=== PATIENT | female | born 1950 | race Hispanic/Latino ===

== ENCOUNTER 2018-12-15 20:31 | Emergency (ER) | payer MEDICARE ==
--- OUTSIDE RECORDS SUMMARY | 2018-12-15 20:33 | XMS REPORT | Continuity of Care Document ---
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 7 DIABETES MELLITUS WITH Medications No Data Provided for This Section Allergies, Adverse Reactions, Alerts No Known Medication Allergies Immunizations No Data Provided for This Section Results No Data Provided for This Section Pathology Reports No Data Provided for This Section Diagnostic Reports Report Value Date Source Gallbladder scan JESSICA burger Patient Name: JASIEL TINSLEY 09/27/2016 [facility] : 1950; Age: 66 years Female MR: [id number] Study: Gallbladder scan JESSICA burger [facility] 09/27/2016 11:15 AM CDT Clinical Indication: R10.84 Generalized abdominal pain.Mid abdominal pain for 6 months, nausea, vomiting, diarrhea. COMPARISON: None TECHNIQUE: Hepatobiliary scan is performed using 6.1 mCi of Tc-99m Choletec, which was administered intravenously. 45 minutes of static imaging was performed at 5 minute intervals in the frontal plane - starting 5 minutes after radiotracer administration. 1 ug of CCK was used for the exam, which was administered intravenously. 30 minutes of further static imaging was performed at 5 minute intervals after CCK a dministration in the frontal plane for gallbladder ejection fraction calculation. INJECTION SITE: Right antecubital. FINDINGS: Prompt hepatic uptake and excretion. There is progression of the radiotracer through a non dilated biliary tree and into small bowel. Gallbladder filling is first noted at 30 minutes past radiotracer injection. After Cholecystokinin infusion the gallbladder ejection fraction is noted to be 61%. (GB ejection fraction - normal greater than 50%, indeterminate 35-50%, abnormal <35%) Technologist Comment: Mild cramping/pressure during CCK infusion. IMPRESSION: Normal hepatobiliary scan and gallbladder ejection fraction. SL: [id number] Consultation Notes No Data Provided for This Section Discharge Summaries No Data Provided for This Section History and Physicals No Data Provided for This Section Vital Signs No Data Provided for This Section Encounters Location Location Encounter Encounter Reason Attending ADM DC Status Source Details Type Number For Provider Date Date Visit [facility] [place] [facility] [id number] Ty 09/27 09/28 [facility] Procedures No Data Provided for This Section Assessment and Plan No Data Provided for This Section Plan of Care No Data Provided for This Section Social History Social History Date Source No data available for this 09/28/[address] [facility] section Family History No Data Provided for This Section Advance Directives No Data Provided for This Section Functional Status No Data Provided for This Section
[2018-12-15] MEDS ORDERED: LEVALBUTEROL 1.25 MG/3 ML NEB ONE (21:25)
[2018-12-15] MEDS ORDERED: CEFTRIAXONE/SWI 1gm 1 GM/10 ML SYR ONE (21:25)
[2018-12-15] MEDS ORDERED: NA CHLORIDE 0.9% 250 ML ONE (21:25)
[2018-12-15] MEDS ORDERED: METHYLPREDNISOLONE 125 MG INJ ONE (21:25)
[2018-12-15] MEDS ORDERED: IPRATROPIUM BROM 0.5MG/2.5ML ONE (21:25)
[2018-12-15] MEDS ORDERED: NA CHLORIDE 0.9% 1,000 ML ONE (21:25)
[2018-12-15] MEDS ORDERED: AZITHROMYCIN 500 MG INJ IVPB ONE (21:25)
[2018-12-15 22:07] LABS: Absolute Lymphocytes (CBC) 2.7 K/uL (0.7-4.9); Basophils % 0.8 % (0-1.3); Hematocrit 42.7 % (36.0-45.0); Lymphocytes % 29.3 % (15.3-44.8); MPV 9.2 fL (7.6-11.3); RBC Red Blood Cell Count 4.86 M/uL (3.86-4.86)
[2018-12-15 22:10] LABS: Protime INR 0.95
--- NOTE | 2018-12-15 22:14 | ER ---
Nurse's Notes [facility] Name: Vandana Bliss Age: 68 yrs Sex: Female : 1950 Arrival Date: 12/15/2018 Time: 20:32 Bed 18 Private MD: Diagnosis: Tobacco abuse counseling;Tobacco use;Cough;Chronic obstructive pulmonary disease, unspecified;Type 1 diabetes mellitus Presentation: 12/15 20:49 Presenting complaint: Patient states: "I was told I have pneumonia about a month ago. I jd3 got better, but then in the last 3-4 days I have gotten worse again. I have a persistent cough and pressure in my back and my chest.". Transition of care: patient was not received from another setting of care. Onset of symptoms was December 12, 2018. Risk Assessment: Do you want to hurt yourself or someone else? Patient reports no desire to harm self or others. Initial Sepsis Screen: Does the patient meet any 2 criteria? RR > 20 per min. No. Patient's initial sepsis screen is negative. Does the patient have a suspected source of infection? No. Patient's initial sepsis screen is negative. Care prior to arrival: None. 20:49 Method Of Arrival: Wheelchair jd3 20:49 Acuity: CAROLYN 3 jd3 Historical: - Allergies: 20:53 No Known Allergies; jd3 - Home Meds: 20:53 diabetes med [Active]; cholesterol med [Active]; blood pressure med [Active]; thyroid jd3 med [Active]; - PMHx: 20:53 Diabetes - IDDM; High Cholesterol; Hypertension; Hypothyroidism; jd3 - PSHx: 20:53 back; jd3 - Immunization history:: Adult Immunizations up to date. - Social history:: Smoking status: Patient uses tobacco products, smokes one-half pack cigarettes per day. - Ebola Screening: : Patient negative for fever greater than or equal to 101.5 degrees Fahrenheit, and additional compatible Ebola Virus Disease symptoms. Screenin:00 Abuse screen: Denies threats or abuse. Denies injuries from another. Nutritional rr5 screening: No deficits noted. Tuberculosis screening: No symptoms or risk factors identified. Fall Risk IV access (20 points). Total Lea Fall Scale indicates No Risk (0-24 pts). Assessment: 20:50 General: Appears in no apparent distress. uncomfortable, Behavior is calm, cooperative, rr5 appropriate for age. Pain: Complains of pain in chest Pain radiates to back Pain Quality of pain is described as pressure, Pain began gradually, Is intermittent. Neuro: Level of Consciousness is awake, alert, obeys commands, Oriented to person, place, time, situation, Appropriate for age. Cardiovascular: Capillary refill < 3 seconds Patient's skin is warm and dry. Respiratory: Reports cough that is persistent Airway is patent Respiratory effort is even, unlabored, Respiratory pattern is regular, symmetrical. GI: No signs and/or symptoms were reported involving the gastrointestinal system. 20:50 : No signs and/or symptoms were reported regarding the genitourinary system. EENT: No rr5 signs and/or symptoms were reported regarding the EENT system. Derm: Skin is intact, Skin is pink, warm \\T\\ dry. Skin temperature is warm. Musculoskeletal: Circulation, motion, and sensation intact. Capillary refill < 3 seconds. 21:50 Reassessment: Patient appears in no apparent distress at this time. Patient is alert, rr5 oriented x 3, equal unlabored respirations, skin warm/dry/pink. feels relieved after the breathing treatment as verbalized by the patient. 22:20 Reassessment: Patient appears in no apparent distress at this time. awaiting for CT rr5 procedure and laboratory. 23:39 Reassessment: Patient appears in no apparent distress at this time. Patient is alert, rr5 oriented x 3, equal unlabored respirations, skin warm/dry/pink. back from CT PE angio. 12/16 00:10 Reassessment: Patient appears in no apparent distress at this time. Patient is alert, rr5 oriented x 3, equal unlabored respirations, skin warm/dry/pink. awaiting for CT PE angio result before discharge.no complaints made. Patient states feeling better. Patient states symptoms have improved. 00:41 Reassessment: Patient appears in no apparent distress at this time. Patient is alert, rr5 oriented x 3, equal unlabored respirations, skin warm/dry/pink. discharge instruction given and explained without complaints made. Patient states feeling better. Patient states symptoms have improved. Vital Signs: 12/15 20:51 BP 165 / 75; Pulse 90; Resp 23 S; Temp 99.3(O); Pulse Ox 97% on R/A; Weight 58.97 kg jd3 (R); Height 5 ft. 0 in. (152.40 cm) (R); Pain 0/10; 22:00 BP 141 / 70; Pulse 92; Resp 22; Pulse Ox 98% on R/A; rr5 23:00 BP 134 / 60; Pulse 75; Resp 18; Pulse Ox 100% ; rr5 08 00:00 BP 121 / 62; Pulse 82; Resp 17; Temp 99; Pulse Ox 98% ; rr5 00:30 BP 123 / 75; Pulse 88; Resp 20; Temp 99; Pulse Ox 99% on R/A; rr5 12/15 20:51 Body Mass Index 25.39 (58.97 kg, 152.40 cm) jd3 ED Course: 12/15 20:32 Patient arrived in ED. ds1 20:50 Patient has correct armband on for positive identification. Placed in gown. Bed in low rr5 position. Call light in reach. Side rails up X2. telemetry monitor on. Pulse ox on. NIBP on. 20:50 No provider procedures requiring assistance completed. IV discontinued, intact, rr5 bleeding controlled, No redness/swelling at site. Pressure dressing applied. Patient maintains SpO2 saturation greater than 95% on room air. 20:51 Triage completed. jd3 20:53 Arm band placed on. jd3 21:00 Markell Gallardo MD is Attending Physician. [place]ol[place] 21:17 Faizan Reddy, RN is Primary Nurse. rr5 21:20 Radiology exam delayed due to lab results not completed at this time. (BUN/Creatinine) vm2 IV insertion attempt and/or patient not having appropriate IV at this time. 21:37 XRAY Chest (1 view) In Process Unspecified. EDMS 21:52 Inserted saline lock: 20 gauge in right antecubital area, using aseptic technique. mw2 Blood collected. 21:58 Radiology exam delayed due to lab results not completed at this time. (BUN/Creatinine). nj 23:02 Amadeo Cash MD is Referral Physician. apolonia 23:31 CT completed. Patient tolerated procedure well. Patient moved to CT via stretcher. wa Patient moved back from CT. 23:42 CT Chest For PE Angio In Process Unspecified. EDMS Administered Medications: 20:10 Drug: Rocephin - (cefTRIAXone) 1 grams Route: IVPB; Infused Over: 30 mins; Site: right rr5 antecubital; 12/16 00:51 Follow up: Response: No adverse reaction; IV Status: Completed infusion; administered rr5 2210H, follow up 2310H 12/15 20:11 Drug: NS 0.9% 500 ml Route: IV; Rate: bolus; Site: right antecubital; rr5 21:00 Follow up: Response: No adverse reaction; IV Status: Completed infusion; IV Intake: rr5 500ml 22:00 Follow up: Response: No adverse reaction rr5 21:35 Drug: Xopenex 3.75 mg Route: Inhalation; rr5 22:35 Follow up: Response: No adverse reaction rr5 21:35 Drug: AtroVENT Aerosol 0.5 mg Route: Inhalation; rr5 22:35 Follow up: Response: No adverse reaction; Marked relief of symptoms rr5 22:00 Drug: SOLU-Medrol 125 mg Route: IVP; Site: right forearm; rr5 23:00 Follow up: Response: No adverse reaction rr5 22:20 Drug: NS 0.9% 1000 ml Route: IV; Rate: 125 ml/hr; Site: right forearm; rr5 12/16 00:30 Follow up: Response: No adverse reaction; IV Status: Order to discontinue infusion; IV rr5 Intake: 250ml 12/15 22:22 Drug: Zithromax 500 mg Route: IVPB; Infused Over: 1 hrs; Site: right antecubital; rr5 23:20 Follow up: Response: No adverse reaction; IV Status: Completed infusion; IV Intake: rr5 250ml 22:32 Drug: predniSONE 40 mg Route: PO; rr5 23:30 Follow up: Response: No adverse reaction rr5 23:29 Not Given (Other Intervention Used; not available): Levemir 100 unit/mL 30 units Sub-Q rr5 once 23:30 Drug: Insulin Regular Human 8 units {Co-Signature: jb4 (Abrahan Chen RN).} {Note: IV.} rr5 Route: IVP; Site: Other; 12/16 00:30 Follow up: Response: No adverse reaction rr5 12/15 23:54 Drug: LanTUS 30 units Route: Sub-Q; Site: right lower abdomen; rr5 12/16 00:35 Follow up: Response: No adverse reaction rr5 Intake: 12/15 21:00 IV: 500ml; Total: 500ml. rr5 23:20 IV: 250ml; Total: 750ml. rr5 12/16 00:30 IV: 250ml; Total: 1000ml. rr5 Outcome: 12/15 22:13 Discharge ordered by . apol[place] 12/16 00:30 Discharged to home ambulatory, with family. rr5 Condition: stable Discharge instructions given to patient, Instructed on discharge instructions, follow up and referral plans. medication usage, Demonstrated understanding of instructions, follow-up care, medications, Prescriptions given X 4. 00:54 Patient left the ED. rr5 Signatures: Dispatcher [employer] EDMS Makrell Gallardo MD MD cha Sanford, Demi ds1 Justin Nice Victoria 2 Vimal Kendrick, LALO RN jd3 No Albrecht mw2 Faizan Reddy RN RN rr5 Abrahan Chen RN jb4 Corrections: (The following items were deleted from the chart) 00:44 12/15 22:20 Reassessment: Patient appears in no apparent distress at this time. rr5 [address] result and laboratory. rr5
--- NOTE | 2018-12-15 22:14 | EDPHYS ---
Physician Documentation [facility] Name: Vandana Bliss Age: 68 yrs Sex: Female : 1950 Arrival Date: 12/15/2018 Time: 20:32 Bed 18 Private MD: ED Physician Markell Gallardo HPI: 12/15 21:16 This 68 yrs old Female presents to ER via Wheelchair with complaints of Cough, apolonia Chest Pain. 21:16 The patient or guardian reports airway noise, cough, difficulty breathing, flu apolonia symptoms. Onset: The symptoms/episode began/occurred 3 day(s) ago. Severity of symptoms: At their worst the symptoms were mild, in the emergency department the symptoms are unchanged. Modifying factors: The symptoms are alleviated by nothing. Associated signs and symptoms: Pertinent positives: fever. The patient has not experienced similar symptoms in the past. Historical: - Allergies: 20:53 No Known Allergies; jd3 - Home Meds: 20:53 diabetes med [Active]; cholesterol med [Active]; blood pressure med [Active]; thyroid jd3 med [Active]; - PMHx: 20:53 Diabetes - IDDM; High Cholesterol; Hypertension; Hypothyroidism; jd3 - PSHx: 20:53 back; jd3 - Immunization history:: Adult Immunizations up to date. - Social history:: Smoking status: Patient uses tobacco products, smokes one-half pack cigarettes per day. - Ebola Screening: : Patient negative for fever greater than or equal to 101.5 degrees Fahrenheit, and additional compatible Ebola Virus Disease symptoms. ROS: 21:17 Constitutional: Negative for fever, chills, and weight loss, Eyes: Negative for injury, apolonia pain, redness, and discharge, ENT: Negative for injury, pain, and discharge, Neck: Negative for injury, pain, and swelling, Cardiovascular: Negative for chest pain, palpitations, and edema, Abdomen/GI: Negative for abdominal pain, nausea, vomiting, diarrhea, and constipation, Back: Negative for injury and pain, : Negative for injury, bleeding, discharge, and swelling, MS/Extremity: Negative for injury and deformity, Skin: Negative for injury, rash, and discoloration, Neuro: Negative for headache, weakness, numbness, tingling, and seizure, Psych: Negative for depression, anxiety, suicide ideation, homicidal ideation, and hallucinations, Allergy/Immunology: Negative for hives, rash, and allergies, Endocrine: Negative for neck swelling, polydipsia, polyuria, polyphagia, and marked weight changes, Hematologic/Lymphatic: Negative for swollen nodes, abnormal bleeding, and unusual bruising. 21:17 Respiratory: Positive for cough, shortness of breath, wheezing, expiratory. Exam: 21:17 Constitutional: This is a well developed, well nourished patient who is awake, alert, apolonia and in no acute distress. Head/Face: Normocephalic, atraumatic. Eyes: Pupils equal round and reactive to light, extra-ocular motions intact. Lids and lashes normal. Conjunctiva and sclera are non-icteric and not injected. Cornea within normal limits. Periorbital areas with no swelling, redness, or edema. ENT: Nares patent. No nasal discharge, no septal abnormalities noted. Tympanic membranes are normal and external auditory canals are clear. Oropharynx with no redness, swelling, or masses, exudates, or evidence of obstruction, uvula midline. Mucous membranes moist. Neck: Trachea midline, no thyromegaly or masses palpated, and no cervical lymphadenopathy. Supple, full range of motion without nuchal rigidity, or vertebral point tenderness. No Meningismus. Chest/axilla: Normal chest wall appearance and motion. Nontender with no deformity. No lesions are appreciated. Cardiovascular: Regular rate and rhythm with a normal S1 and S2. No gallops, murmurs, or rubs. Normal PMI, no JVD. No pulse deficits. Abdomen/GI: Soft, non-tender, with normal bowel sounds. No distension or tympany. No guarding or rebound. No evidence of tenderness throughout. Back: No spinal tenderness. No costovertebral tenderness. Full range of motion. Female : Normal external genitalia. Skin: Warm, dry with normal turgor. Normal color with no rashes, no lesions, and no evidence of cellulitis. MS/ Extremity: Pulses equal, no cyanosis. Neurovascular intact. Full, normal range of motion. Neuro: Awake and alert, GCS 15, oriented to person, place, time, and situation. Cranial nerves II-XII grossly intact. Motor strength 5/5 in all extremities. Sensory grossly intact. Cerebellar exam normal. Normal gait. Psych: Awake, alert, with orientation to person, place and time. Behavior, mood, and affect are within normal limits. 21:17 Respiratory: the patient does not display signs of respiratory distress, Respirations: no acute changes, is not noted, labored breathing, that is mild, Breath sounds: bronchial sounds, decreased breath sounds, rhonchi, that are mild. Vital Signs: 20:51 BP 165 / 75; Pulse 90; Resp 23 S; Temp 99.3(O); Pulse Ox 97% on R/A; Weight 58.97 kg jd3 (R); Height 5 ft. 0 in. (152.40 cm) (R); Pain 0/10; 22:00 BP 141 / 70; Pulse 92; Resp 22; Pulse Ox 98% on R/A; rr5 23:00 BP 134 / 60; Pulse 75; Resp 18; Pulse Ox 100% ; rr5 12/16 00:00 BP 121 / 62; Pulse 82; Resp 17; Temp 99; Pulse Ox 98% ; rr5 00:30 BP 123 / 75; Pulse 88; Resp 20; Temp 99; Pulse Ox 99% on R/A; rr5 12/15 20:51 Body Mass Index 25.39 (58.97 kg, 152.40 cm) jd3 MDM: 12/15 21:01 Patient medically screened. [facility] 21:17 Data reviewed: vital signs, nurses notes, lab test result(s), EKG, radiologic studies, [facility] CT scan, plain films. 12/15 21:16 Order name: Basic Metabolic Panel; Complete Time: 22:59 [facility] 12/15 21:16 Order name: CBC with Diff; Complete Time: 22:11 [facility] 12/15 21:16 Order name: LFT's; Complete Time: 22:59 [facility] 12/15 21:16 Order name: Magnesium; Complete Time: 22:59 [facility] 12/15 21:16 Order name: NT PRO-BNP; Complete Time: 22:59 [facility] 12/15 21:16 Order name: PT-INR; Complete Time: 22:59 [facility] 12/15 21:16 Order name: Troponin (emerg Dept Use Only); Complete Time: 22:59 [facility] 12/15 21:16 Order name: XRAY Chest (1 view) [facility] 12/15 21:16 Order name: Blood Culture Adult (2) [facility] 12/15 21:16 Order name: CT Chest For PE Angio [facility] 12/15 21:16 Order name: Procalcitonin; Complete Time: 22:59 [facility] 12/15 21:16 Order name: Lipase; Complete Time: 22:59 [facility] 12/15 21:18 Order name: Flu; Complete Time: 22:59 [facility] 12/15 21:16 Order name: EKG; Complete Time: 21:17 [facility] 12/15 21:16 Order name: Cardiac monitoring; Complete Time: 22:04 [facility] 12/15 21:16 Order name: EKG - Nurse/Tech; Complete Time: 23:57 [facility] 12/15 21:16 Order name: IV Saline Lock; Complete Time: 22:04 [facility] 12/15 21:16 Order name: Labs collected and sent; Complete Time: 22:04 [facility] 12/15 21:16 Order name: O2 Per Protocol; Complete Time: 22:04 [facility] 12/15 21:16 Order name: O2 Sat Monitoring; Complete Time: 22:04 [facility] Administered Medications: 20:10 Drug: Rocephin - (cefTRIAXone) 1 grams Route: IVPB; Infused Over: 30 mins; Site: right rr5 antecubital; 12/16 00:51 Follow up: Response: No adverse reaction; IV Status: Completed infusion; administered rr5 2210H, follow up 2310H 12/15 20:11 Drug: NS 0.9% 500 ml Route: IV; Rate: bolus; Site: right antecubital; rr5 21:00 Follow up: Response: No adverse reaction; IV Status: Completed infusion; IV Intake: rr5 500ml 22:00 Follow up: Response: No adverse reaction rr5 21:35 Drug: Xopenex 3.75 mg Route: Inhalation; rr5 22:35 Follow up: Response: No adverse reaction rr5 21:35 Drug: AtroVENT Aerosol 0.5 mg Route: Inhalation; rr5 22:35 Follow up: Response: No adverse reaction; Marked relief of symptoms rr5 22:00 Drug: SOLU-Medrol 125 mg Route: IVP; Site: right forearm; rr5 23:00 Follow up: Response: No adverse reaction rr5 22:20 Drug: NS 0.9% 1000 ml Route: IV; Rate: 125 ml/hr; Site: right forearm; rr5 12/16 00:30 Follow up: Response: No adverse reaction; IV Status: Order to discontinue infusion; IV rr5 Intake: 250ml 12/15 22:22 Drug: Zithromax 500 mg Route: IVPB; Infused Over: 1 hrs; Site: right antecubital; rr5 23:20 Follow up: Response: No adverse reaction; IV Status: Completed infusion; IV Intake: rr5 250ml 22:32 Drug: predniSONE 40 mg Route: PO; rr5 23:30 Follow up: Response: No adverse reaction rr5 23:29 Not Given (Other Intervention Used; not available): Levemir 100 unit/mL 30 units Sub-Q rr5 once 23:30 Drug: Insulin Regular Human 8 units {Co-Signature: jb4 (Abrahan Chen RN).} {Note: IV.} rr5 Route: IVP; Site: Other; 12/16 00:30 Follow up: Response: No adverse reaction rr5 12/15 23:54 Drug: LanTUS 30 units Route: Sub-Q; Site: right lower abdomen; rr5 12/16 00:35 Follow up: Response: No adverse reaction rr5 Disposition: 12/15/18 22:13 Discharged to Home. Impression: Tobacco abuse counseling, Tobacco use, Cough, Chronic obstructive pulmonary disease, unspecified, Type 1 diabetes mellitus. - Condition is Fair. - Discharge Instructions: Chronic Bronchitis, Steps to Quit Smoking, Smoking Hazards, Cool Mist Vaporizer, Chronic Obstructive Pulmonary Disease Exacerbation, Steps to Quit Smoking, [id number], Cough, Adult, Ferx-iv-Rghc, How to Use a Nebulizer, Aspirin and Your Heart, Cough, Adult, Chronic Obstructive Pulmonary Disease Exacerbation, [id number]. - Prescriptions for Albuterol Sulfate 2.5 mg /3 mL (0.083 %) Inhalation Solution for Nebulization - inhale 1 unit by NEBULIZATION route every 8 hours As needed; 1 box. Prednisone 20 mg Oral Tablet - take 2 tablet by ORAL route once daily for 5 days; 10 tablet. Albuterol Sulfate 90 mcg/actuation - inhale 1-2 puff by INHALATION route every 4-6 hours; 1 Inhaler. Zithromax 500 mg Oral Tablet - take 1 tablet by ORAL route once daily for 4 days; 4 tablet. - Medication Reconciliation Form, Thank You Letter, Antibiotic Education, Prescription Opioid Use form. - Follow up: Private Physician; When: 2 - 3 days; Reason: Recheck today's complaints, Continuance of care, Re-evaluation by your physician. Follow up: Amadeo Cash MD; When: 2 - 3 days; Reason: Recheck today's complaints, Continuance of care, Re-evaluation by your physician. - Problem is new. - Symptoms have improved. Signatures: Dispatcher [employer] Markell Nath MD MD cha Davies, Jonathon, RN RN jd3 Faizan Reddy RN RN rr5 Abrahan Chen RN jb4 Corrections: (The following items were deleted from the chart) 12/15 23:01 22:13 12/15/2018 22:13 Discharged to Home. Impression: Tobacco abuse counseling; apolonia Tobacco use; Cough; Chronic obstructive pulmonary disease, unspecified. Condition is Fair. Forms are Medication Reconciliation Form, Thank You Letter, Antibiotic Education, Prescription Opioid Use. Follow up: Private Physician; When: 2 - 3 days; Reason: Recheck today's complaints, Continuance of care, Re-evaluation by your physician. Problem is new. Symptoms have improved. [facility] : 23:01 12/15/2018 22:13 Discharged to Home. Impression: Tobacco abuse counseling; [facility] Tobacco use; Cough; Chronic obstructive pulmonary disease, unspecified; Type 1 diabetes mellitus. Condition is Fair. Discharge Instructions: Chronic Bronchitis, Steps to Quit Smoking, Smoking Hazards, Cool Mist Vaporizer, Chronic Obstructive Pulmonary Disease Exacerbation, Steps to Quit Smoking, Hbyh-rg-Ypid, Cough, Adult, Qcun-vr-Dmik, How to Use a Nebulizer, Cough, Adult, Chronic Obstructive Pulmonary Disease Exacerbation, Grfj-wc-Slzm, Aspirin and Your Heart. Prescriptions for Albuterol Sulfate 2.5 mg /3 mL (0.083 %) Inhalation Solution for Nebulization - inhale 1 unit by NEBULIZATION route every 8 hours As needed; 1 box, Prednisone 20 mg Oral Tablet - take 2 tablet by ORAL route once daily for 5 days; 10 tablet, Albuterol Sulfate 90 mcg/actuation - inhale 1-2 puff by INHALATION route every 4-6 hours; 1 Inhaler, Zithromax 500 mg Oral Tablet - take 1 tablet by ORAL route once daily for 4 days; 4 tablet. and Forms are Medication Reconciliation Form, Thank You Letter, Antibiotic Education, Prescription Opioid Use. Follow up: Private Physician; When: 2 - 3 days; Reason: Recheck today's complaints, Continuance of care, Re-evaluation by your physician. Problem is new. Symptoms have improved. [facility] 12/16 00:54 12/15 23:02 12/15/2018 22:13 Discharged to Home. Impression: Tobacco abuse counseling; rr5 Tobacco use; Cough; Chronic obstructive pulmonary disease, unspecified; Type 1 diabetes mellitus. Condition is Fair. Discharge Instructions: Chronic Bronchitis, Steps to Quit Smoking, Smoking Hazards, Cool Mist Vaporizer, Chronic Obstructive Pulmonary Disease Exacerbation, Steps to Quit Smoking, Bofj-fw-Gbww, Cough, Adult, Ioxo-zv-Ocwh, How to Use a Nebulizer, Cough, Adult, Chronic Obstructive Pulmonary Disease Exacerbation, Kvgg-al-Syez, Aspirin and Your Heart. Prescriptions for Albuterol Sulfate 2.5 mg /3 mL (0.083 %) Inhalation Solution for Nebulization - inhale 1 unit by NEBULIZATION route every 8 hours As needed; 1 box, Prednisone 20 mg Oral Tablet - take 2 tablet by ORAL route once daily for 5 days; 10 tablet, Albuterol Sulfate 90 mcg/actuation - inhale 1-2 puff by INHALATION route every 4-6 hours; 1 Inhaler, Zithromax 500 mg Oral Tablet - take 1 tablet by ORAL route once daily for 4 days; 4 tablet. and Forms are Medication Reconciliation Form, Thank You Letter, Antibiotic Education, Prescription Opioid Use. Follow up: Private Physician; When: 2 - 3 days; Reason: Recheck today's complaints, Continuance of care, Re-evaluation by your physician. Follow up: Amadeo Cash; When: 2 - 3 days; Reason: Recheck today's complaints, Continuance of care, Re-evaluation by your physician. Problem is new. Symptoms have improved. [facility]
[2018-12-15 22:28] LABS: ALT/SGPT 18 U/L (12-78); AST/SGOT 10 U/L (15-37); Albumin 3.8 g/dL (3.4-5.0); Alkaline Phosphatase 128 U/L (45-117); BUN Blood Urea Nitrogen 15 mg/dL (7-18); Bicarbonate 25 mmol/L (21-32); Bilirubin Direct < 0.1 mg/dL (0-0.2); Bilirubin Total 0.3 mg/dL (0.2-1.0); Glucose Level 326 mg/dL (74-106); Lipase 546 U/L (73-393); Magnesium 2.2 mg/dL (1.8-2.4); NT PRO-BNP 51 pg/mL (<125); Potassium 3.8 mmol/L (3.5-5.1); Protein, Total 7.8 g/dL (6.4-8.2); Sodium Level 137 mmol/L (136-145); Troponin (Emerg Dept Use Only) < 0.02 ng/mL (0.0-0.045)
[2018-12-15] MEDS ORDERED: predniSONE 20 MG TAB ONE (22:30)
[2018-12-15] MEDS ORDERED: INSULIN -REGULAR HUMAN 50 UNIT/0.5 ML ML ONE (23:03)
[2018-12-15] MEDS ORDERED: INSULIN GLARGINE 100 UNITS/ML SQ ONE (23:45)
[2018-12-16 02:57] VITALS: TEMP 99
[2018-12-16 02:58] VITALS: BP 123/75; O2SAT 99
--- NOTE | 2018-12-16 06:47 | EKG ---
Test Date: 2018-12-15 Test Time: 22:18:14 Direct Casting Operator: AURORA MEASUREMENT RESULTS: Intervals: Rate: 95 VT: 188 QRSD: 146 QT: 404 QTc: 507 [place]: P: 60 VT: 188 QRS: 7 T: 164 INTERPRETIVE STATEMENTS: Normal sinus rhythm Left bundle branch block Abnormal ECG Compared to ECG 06/05/2017 13:16:46 Left bundle-branch block now present Electronically Signed On 12-16-18 06:45:58 CDT by Perry Lora
--- NOTE | 2018-12-16 10:26 | RAD REPORT ---
EXAM DESCRIPTION: Clementina Single View12/15/2018 9:36 pm CLINICAL HISTORY: Cough COMPARISON: May 2017 FINDINGS: The lungs appear clear of acute infiltrate. The heart is normal size IMPRESSION: No acute abnormalities displayed
--- NOTE | 2018-12-18 14:25 | RAD REPORT ---
EXAM DESCRIPTION: CT - Chest For Pe Angio - 12/16/2018 3:37 am CLINICAL HISTORY: 68 years Female Chest pain;Congestion;COPD;Cough COMPARISON: None TECHNIQUE: Images were obtained in axial, sagittal, and coronal planes. Intravenous contrast was adm inistered. Coronal oblique images also obtained. This exam was performed according to our departmental dose-optimization program which includes use of Automated Exposure Control, adjustment of the mA and/or kV according to patient size and/or use of i terative reconstruction technique. FINDINGS: No filling defects pulmonary arteries bilaterally. No aortic dissection or dilatation. No pericardial or pleural effusions bilaterally. No pneumothorax. No lung parenchymal infiltrates or nodules seen. No abnormality upper abdomen. No acute osseous abnormality. IMPRESSION: No evidence for pulmonary embolus. No aortic dissection or dilatation. No acute intrathoracic abnormality. Electronically signed by: Mikki Hebert MD 12/15/2018 11:51 PM CDT Due to temporary technical issues with the PACS/Fluency reporting system, reports are being signed by the in house radiologist as a courtesy to ensure prompt reporting. The interpreting radiologist is f ully responsible for the content of the report.
== END 2018-12-16 00:54 | disposition home or self-care (01) ==
LOC: ER 20:31
DX: J44.9 Chronic obstructive pulmonary disease, unspecified (principal); E10.9 Type 1 diabetes mellitus without complications; Z72.0 Tobacco use; Z71.6 Tobacco abuse counseling; I10 Essential (primary) hypertension; E03.9 Hypothyroidism, unspecified; E78.00 Pure hypercholesterolemia, unspecified
CPT/HCPCS: 93005; 87040 ×2; 85025; 80048; 36415; 83735; 87205; 85610; 80076; 84484; 83690; 84145; 83880; 87804 ×2; 71275; 71045; 96372; 99285; Q9967; J0456; J0696; J7030; J2930; 96365; 96366; 96368; 96375; J7512

== ENCOUNTER 2024-09-12 14:47 | Emergency (ER) | payer OTHER ==
--- OUTSIDE RECORDS SUMMARY | 2024-09-12 14:52 | XMS REPORT | Continuity of Care Document ---
Author Name Unknown Address [address] [place] [address] [facility] [place] Address [address] [place] [address] Care Team Providers [facility] [employer] [employer] Name Role Phone Unavailable Unavailable Unavailable Problems Condition Name Condition Details Condition Category Status Onset Date Resolution Date Last Treatment Date Treating Clinician Comments Source DX: E11.9= TYPE 2 DIABETES MELLITUS WITH DX: E11.9= TYPE 2 DIABETES MELLITUS WITH Active 09/21/2016 [facility] Diagnosis Active 09-21 00:00: 00 2016-09-27 11:05:00 Emanuel Glass Carpal tunnel syndrome (disorder) Carpal tunnel syndrome (disorder) Active Problem 01/26/2020 [facility] Problem Active 2020-01-26 00:55:53 Emanuel Glass Encounters Start Date/Time End Date/Time Encounter Type Admission Type Attending Clinicians Care Facility Care Department Encounter ID Source 2021-11-26 16:52:00 Outpatient [facility] [id number] [facility] 2021-09-18 09:20:04 Outpatient [facility] [id number] [facility] 2020-01-23 13:15:00 2020-01-24 04:59:59 Outpatient [facility] [place] [id number] Emanuel Glass 2016-09-27 15:54:00 2016-09-28 04:59:00 Outpatient [facility] [id number] Emanuel Glass
[2024-09-12] MEDS ORDERED: ONDANSETRON 4 MG/2 ML VIAL ONE (15:22)
[2024-09-12] MEDS ORDERED: NA CHLORIDE 0.9% 1,000 ML ONE (15:23)
[2024-09-12] MEDS ORDERED: MORPHINE 4 MG/ML SYR ONE (15:23)
[2024-09-12 15:41] LABS: Absolute Basophils 0.1 K/uL (0-0.5); Absolute Eosinophils 0.1 K/uL (0-0.5); Absolute Lymphocytes (CBC) 2.3 K/uL (0.7-4.9); Absolute Monocytes 0.6 K/uL (0.1-1.3); Absolute Neutrophil 5.4 K/uL (1.8-8.0); Basophils % 0.8 % (0-1.3); Eosinophils % 0.9 % (0-4.4); Hematocrit 38.9 % (36.0-45.0); Hemoglobin 13.3 g/dL (12.0-15.0); MCH 30.6 pg (27.0-35.0); MCHC 34.2 g/dL (32.0-36.0); MCV 89.3 fL (80-100); MPV 8.9 fL (7.6-11.3); Monocytes % 7.2 % (3.3-12.3); Neutrophils % 64.1 % (41.7-73.7); Nucleated Red Blood Cells % 0.1 % (0-0); Platelets 313 thou/uL (152-406); RBC Red Blood Cell Count 4.36 M/uL (3.86-4.86)
[2024-09-12 15:48] LABS: Arterial Blood Carboxyhemoglob 2.6 % (0-1.5); Blood Gas Oxyhemoglobin 73.5 % (94-97); Blood Gas THB 12.7 g/dl (12-18); Blood O2 Saturation 77.2 % (92-98.5)
[2024-09-12 15:52] LABS: Albumin 3.8 g/dL (3.4-5.0); Anion Gap 8.9 mEq/L (5.0-15.0); BETA HYDROXYBUTYRATE 0.14 mmol/L (0.02-0.27); Bilirubin Total 0.4 mg/dL (0.2-1.0); Globulin 3.8 g/dL (2.3-3.5); Potassium 3.9 mEq/L (3.5-5.1); Protein, Total 7.6 g/dL (6.4-8.2)
--- NOTE | 2024-09-12 16:26 | RAD REPORT ---
EXAMINATION: XR LEFT HIP CLINICAL INDICATION: . PAIN TECHNIQUE: Multiple views of the left hip were obtained. COMPARISON: No prior exam. FINDINGS: No fracture, dislocation or AVN seen.
--- NOTE | 2024-09-12 16:27 | RAD REPORT ---
EXAMINATION: XR PELVIS CLINICAL INDICATION: BLUNT TRAUMA TECHNIQUE: AP Pelvis examination was obtained. COMPARISON: No prior exam. FINDINGS: Degenerative changes involve both hips, [id number]. No fracture, dislocation or AVN.
--- NOTE | 2024-09-12 16:33 | RAD REPORT ---
EXAM:Knee 1 View HISTORY: DEFORMITY COMPARISON: None FINDINGS/IMPRESSION: Only a single lateral projection is submitted. This demonstrates an angulated mi ldly comminuted distal femur fracture.
--- NOTE | 2024-09-12 17:16 | ER ---
Nurse's Notes [facility] Name: Vandana Bliss Age: 74 yrs Sex: Female : 1950 Arrival Date: 09/12/2024 Time: 14:47 Bed 2 Private MD: Diagnosis: Displaced fracture of greater trochanter of left femur;Fall (on)(from) sidewalk curb Presentation: 09/12 15:10 Chief complaint: EMS states: PT WAS WALKING THROUGH PARKING LOT AND TRIPPED OVER dd2 CONCRETE SLAB ABD LANDED ON LT KNEE. Coronavirus screen: At this time, the client does not indicate any symptoms associated with coronavirus-19. Ebola Screen: No symptoms or risks identified at this time. Initial Sepsis Screen: Does the patient meet any 2 criteria? No. Patient's initial sepsis screen is negative. Does the patient have a suspected source of infection? No. Patient's initial sepsis screen is negative. Risk Assessment: Do you want to hurt yourself or someone else? Patient reports no desire to harm self or others. Onset of symptoms was September 12, 2024. 15:10 Method Of Arrival: EMS: [facility] dd2 15:10 Acuity: CAROLYN 3 dd2 Triage Assessment: 15:47 General: Appears uncomfortable, Behavior is cooperative, appropriate for age, anxious. dd2 Pain: Complains of pain in left upper thigh and left knee Pain does not radiate. Pain currently is 10 out of 10 on a pain scale. Pain began 30 min ago. EENT: No deficits noted. No signs and/or symptoms were reported regarding the EENT system. Neuro: No deficits noted. Level of Consciousness is awake, alert, obeys commands, Oriented to person, place, time, situation, Appropriate for age. Cardiovascular: No deficits noted. Respiratory: No deficits noted. Airway is patent Respiratory effort is even, unlabored, Respiratory pattern is regular, symmetrical. GI: No deficits noted. No signs and/or symptoms were reported involving the gastrointestinal system. : No deficits noted. No signs and/or symptoms were reported regarding the genitourinary system. Derm: EDEMA TO LT KNEE. Musculoskeletal: Bony deformity noted of left knee Swelling present in left knee Tenderness present in left knee Reports pain in left upper thigh and left knee Pain is 10 out of 10 on a pain scale. Injury Description: Deformity sustained to left knee was sustained less than 30 minutes ago. Historical: - Allergies: 15:47 No Known Allergies; dd2 - PMHx: 15:47 chronic back pain; Diabetes - IDDM; High Cholesterol; Hypertension; Hypothyroidism; dd2 - PSHx: 15:47 None; dd2 - Immunization history:: Adult Immunizations up to date. - Infectious Disease History:: Denies. - Social history:: Smoking status: Patient reports the use of cigarette tobacco products, denies chronic smoking, but will smoke occasionally. Screenin:57 [facility] ED Fall Risk Assessment (Adult) History of falling in the last 3 months, dd2 including since admission Yes- single mechanical fall (1 pt) Confusion or Disorientation No (0 pts) Intoxicated or Sedated No (0 pts) Impaired Gait Yes (1 pt) Mobility Assist Device Used Yes (1 pt) Altered Elimination No (0 pt) Score/Fall Risk Level 3 or more points = High Risk Oriented to surroundings, Maintained a safe environment, Educated pt \T\ family on fall prevention, incl call for assistance when getting out of bed, Assessed \T\ reinforced patient's understanding of fall precautions, Hourly rounding (assess needs \T\ fall precautionary measures) done. Abuse screen: Denies threats or abuse. Denies injuries from another. Nutritional screening: No deficits noted. On. Tuberculosis screening: No symptoms or risk factors identified. Assessment: 15:54 Reassessment: SEE TRIAGE ASSESSMENT FOR FULL ASSESSMENT. dd2 18:09 Reassessment: REPORT CALLED TO LALO TEMPLETON. dd2 Vital Signs: 15:10 BP 165 / 63; Pulse 72; Resp 17; Temp 98.3; Pulse Ox 100% on R/A; Weight 61.23 kg; Pain dd2 10/10; 15:56 BP 138 / 55; Pulse 70; Resp 17; Pulse Ox 96% on R/A; dd2 16:30 BP 135 / 82; Pulse 79; Resp 16; Pulse Ox 99% on R/A; dd2 17:15 BP 148 / 66; Pulse 83; Resp 17; Pulse Ox 93% on R/A; dd2 18:09 BP 178 / 72; Pulse 83; Resp 16; Pulse Ox 95% on R/A; dd2 19:16 BP 144 / 81; Pulse 80; Resp 17; Pulse Ox 95% on R/A; dd2 15:10 Pain Scale: Adult dd2 Ming Coma Score: 15:57 Eye Response: spontaneous(4). Motor Response: obeys commands(6). Verbal Response: dd2 oriented(5). Total: 15. ED Course: 15:03 Patient arrived in ED. ll1 15:05 Emy Cason MD is Attending Physician. gb1 15:35 ABG: VBG Sent. dd2 15:35 BETA HYDROXYBUTYRATE Sent. dd2 15:35 CBC with Diff Sent. dd2 15:35 CMP Sent. dd2 15:35 Lipase Sent. dd2 15:47 Triage completed. dd2 15:47 Arm band placed on right wrist. dd2 15:53 DILLON KRISHNAN, RN is Primary Nurse. dd2 15:57 Initial lab(s) drawn, by ED staff, sent to lab. Inserted saline lock: 22 gauge in right dd2 antecubital area, using aseptic technique. Blood collected. Flushed with 10 mL NS. Patient maintains SpO2 saturation greater than 95% on room air. 15:57 Patient has correct armband on for positive identification. Bed in low position. Call dd2 light in reach. Side rails up X2. Client placed on continuous cardiac and pulse oximetry monitoring. NIBP monitoring applied. Door closed. Noise minimized. Lights dimmed. Warm blanket given. Pillow given. Verbal reassurance given. 16:05 Knee 1 View In Process Unspecified. EDMS 16:05 Hip Left 2 View In Process Unspecified. EDMS 16:06 Pelvis XRAY In Process Unspecified. EDMS 18:01 transfer initiated by Yessi Alexander pt auto accepted in transfer to [facility] by dr preeti valenzuela admin approval given by Aileen Reyna. 19:16 No provider procedures requiring assistance completed. Patient transferred, IV remains dd2 in place. 19:16 Provided Education on: TRANSFER INSTRUCTIONS. dd2 Administered Medications: 15:34 Drug: NS 0.9% IV 1000 ml IV at 1 bolus Per protocol; to be given as a bolus over 60 dd2 minutes Route: IV; Rate: 1 bolus; Site: right antecubital; 15:49 Follow up: Response: No adverse reaction dd2 16:34 Follow up: IV Status: Completed infusion; IV Intake: 1000ml dd2 15:34 Drug: morphine IVP or IV 4 mg IVP once over 4 mins Route: IVP; Infused Over: 4 mins; dd2 Site: right antecubital; 15:49 Follow up: Response: No adverse reaction dd2 15:34 Drug: Ondansetron IVP 4 mg IVP once; over 2 minutes Route: IVP; Site: right antecubital;dd2 15:49 Follow up: Response: No adverse reaction dd2 17:28 Drug: Nicotine Transdermal Patch 21 mg/24 hr 1 patches Transdermal once Route: dd2 Transdermal; Site: affected area; 18:08 Follow up: Response: No adverse reaction dd2 17:29 Drug: HYDROmorphone IVP 1 mg IVP once Route: IVP; Site: right antecubital; dd2 17:44 Follow up: Response: No adverse reaction dd2 Medication: 15:57 VIS not applicable for this client. dd2 Intake: 16:34 IV: 1000ml; Total: 1000ml. dd2 Outcome: 17:16 ER care complete, transfer ordered by . gb1 19:16 Transferred by ground EMS to [facility], Transfer form completed. dd2 19:16 Condition: stable 19:16 Instructed on the need for transfer, Demonstrated understanding of instructions, 19:18 Patient left the ED. dd2 Signatures: Dispatcher [employer] EDMS Rafia Tanner Lynsay, RN RN ll1 Emy Cason MD MD gb1 DILLON KRISHNAN RN RN dd2 Corrections: (The following items were deleted from the chart) 15:55 15:47 Immunization history: Adult Immunizations up to date, dd2 dd2 15:55 15:47 Infectious Disease History: Denies. dd2 dd2 15:55 15:47 Social history: Smoking status: Patient reports the use of cigarette tobacco dd2 products, denies chronic smoking, but will smoke occasionally, dd2
--- NOTE | 2024-09-12 17:16 | EDPHYS ---
Physician Documentation [facility] Name: Vandana Bliss Age: 74 yrs Sex: Female : 1950 Arrival Date: 09/12/2024 Time: 14:47 Bed 2 Private MD: ED Physician Emy Cason HPI: 09/12 15:16 This 74 yrs old Female presents to ER via Unassigned with complaints of fall, gb1 LT knee pain. 15:16 74-year-old female was in a parking lot and fell over the curb head in front of her gb1 car. She has left knee pain and is painful to move. She has no loss of consciousness or any other distracting injuries reported. She has an insulin-dependent diabetic and her blood sugar read as high per EMS.. Historical: - Allergies: 15:47 No Known Allergies; dd2 - PMHx: 15:47 chronic back pain; Diabetes - IDDM; High Cholesterol; Hypertension; Hypothyroidism; dd2 - PSHx: 15:47 None; dd2 - Immunization history:: Adult Immunizations up to date. - Infectious Disease History:: Denies. - Social history:: Smoking status: Patient reports the use of cigarette tobacco products, denies chronic smoking, but will smoke occasionally. Exam: 15:16 Constitutional: This is a well developed, well nourished patient who is awake, alert, gb1 and in no acute distress. Head/Face: Normocephalic, atraumatic. Eyes: Pupils equal round and reactive to light, extra-ocular motions intact. Lids and lashes normal. Conjunctiva and sclera are non-icteric and not injected. Cornea within normal limits. Periorbital areas with no swelling, redness, or edema. ENT: Nares patent. No nasal discharge, no septal abnormalities noted. Tympanic membranes are normal and external auditory canals are clear. Oropharynx with no redness, swelling, or masses, exudates, or evidence of obstruction, uvula midline. Mucous membranes moist. Neck: Trachea midline, no thyromegaly or masses palpated, and no cervical lymphadenopathy. Supple, full range of motion without nuchal rigidity, or vertebral point tenderness. No Meningismus. Chest/axilla: Normal chest wall appearance and motion. Nontender with no deformity. No lesions are appreciated. Cardiovascular: Regular rate and rhythm with a normal S1 and S2. No gallops, murmurs, or rubs. Normal PMI, no JVD. No pulse deficits. Respiratory: Lungs have equal breath sounds bilaterally, clear to auscultation and percussion. No rales, rhonchi or wheezes noted. No increased work of breathing, no retractions or nasal flaring. Abdomen/GI: Soft, non-tender, with normal bowel sounds. No distension or tympany. No guarding or rebound. No evidence of tenderness throughout. Back: No spinal tenderness. No costovertebral tenderness. Full range of motion. Skin: Warm, dry with normal turgor. Normal color with no rashes, no lesions, and no evidence of cellulitis. MS/ Extremity: Pulses equal, no cyanosis. Neurovascular intact. Left patella is very tender to touch and is swollen in the anterior knee joint. Good popliteal pulses palpated. Exam is limited secondary to pain and decreased range of motion. Vital Signs: 15:10 BP 165 / 63; Pulse 72; Resp 17; Temp 98.3; Pulse Ox 100% on R/A; Weight 61.23 kg; Pain dd2 10/10; 15:56 BP 138 / 55; Pulse 70; Resp 17; Pulse Ox 96% on R/A; dd2 16:30 BP 135 / 82; Pulse 79; Resp 16; Pulse Ox 99% on R/A; dd2 17:15 BP 148 / 66; Pulse 83; Resp 17; Pulse Ox 93% on R/A; dd2 18:09 BP 178 / 72; Pulse 83; Resp 16; Pulse Ox 95% on R/A; dd2 19:16 BP 144 / 81; Pulse 80; Resp 17; Pulse Ox 95% on R/A; dd2 15:10 Pain Scale: Adult dd2 Ming Coma Score: 15:57 Eye Response: spontaneous(4). Motor Response: obeys commands(6). Verbal Response: dd2 oriented(5). Total: 15. MDM: 15:08 Medical Screening Exam initiated gb1 17:16 Data reviewed: vital signs, nurses notes, radiologic studies, plain films. gb1 18:20 ED course: I reviewed the venous blood gas for this patient which shows a pH of gb1 7.191PFO5 of 42.5 PO2 of 45.3 a bicarb of 23.9. This is a venous sample at 21% FiO2.. 09/12 15:07 Order name: CBC with Diff; Complete Time: 16:01 gb1 09/12 15:07 Order name: CMP; Complete Time: 16:01 gb1 09/12 15:07 Order name: Lipase; Complete Time: 16:01 gb1 09/12 15:07 Order name: BETA HYDROXYBUTYRATE; Complete Time: 16:01 gb1 09/12 15:07 Order name: ABG: VBG; Complete Time: 16:01 gb1 09/12 15:13 Order name: Pelvis XRAY; Complete Time: 16:39 gb1 09/12 16:04 Order name: Knee 1 View; Complete Time: 16:39 EDMS 09/12 16:04 Order name: Hip Left 2 View; Complete Time: 16:39 EDMS 09/12 15:07 Order name: IV Saline Lock; Complete Time: 15:57 gb1 09/12 15:07 Order name: Labs collected and sent; Complete Time: 15:57 gb1 Administered Medications: 15:34 Drug: NS 0.9% IV 1000 ml IV at 1 bolus Per protocol; to be given as a bolus over 60 dd2 minutes Route: IV; Rate: 1 bolus; Site: right antecubital; 15:49 Follow up: Response: No adverse reaction dd2 16:34 Follow up: IV Status: Completed infusion; IV Intake: 1000ml dd2 15:34 Drug: morphine IVP or IV 4 mg IVP once over 4 mins Route: IVP; Infused Over: 4 mins; dd2 Site: right antecubital; 15:49 Follow up: Response: No adverse reaction dd2 15:34 Drug: Ondansetron IVP 4 mg IVP once; over 2 minutes Route: IVP; Site: right antecubital;dd2 15:49 Follow up: Response: No adverse reaction dd2 17:28 Drug: Nicotine Transdermal Patch 21 mg/24 hr 1 patches Transdermal once Route: dd2 Transdermal; Site: affected area; 18:08 Follow up: Response: No adverse reaction dd2 17:29 Drug: HYDROmorphone IVP 1 mg IVP once Route: IVP; Site: right antecubital; dd2 17:44 Follow up: Response: No adverse reaction dd2 Disposition Summary: 09/12/24 17:16 Transfer Ordered Notes: Transfer Location: [facility] gb1 Reason: Higher level of care gb1 Condition: Fair gb1 Problem: new gb1 Symptoms: have worsened gb1 Accepting Physician: YAYA(09/12/24 19:18) dd2 Diagnosis - Displaced fracture of greater trochanter of left femur gb1 - Fall (on)(from) sidewalk curb gb1 Forms: - Medication Reconciliation Form gb1 - SBAR form gb1 Critical care time excluding procedures: 17:16 Critical care time: Bedside Care: 25 minutes, Consultation: 20 minutes, Family gb1 Intervention: 40 minutes. Total time: 85 minutes Signatures: Dispatcher [employer] EDMS Emy Cason MD MD gb1 DILLON KRISHNAN RN RN dd2 Corrections: (The following items were deleted from the chart) 15:08 15:08 CBC+H.LAB.BRZ ordered. EDMS EDMS 15:08 15:08 COMPREHENSIVE METABOLIC PANEL+C.LAB.BRZ ordered. EDMS EDMS 15:08 15:08 LIPASE+C.LAB.BRZ ordered. EDMS EDMS 15:08 15:08 Urinalysis+U.LAB.BRZ ordered. EDMS EDMS 15:08 15:08 BETA HYDROXYBUTYRATE+C.LAB.BRZ ordered. EDMS EDMS 15:08 15:08 Arterial Blood Gas+RC.LAB.BRZ ordered. EDMS EDMS 15:14 15:14 Pelvis+RAD.RAD.BRZ ordered. EDMS EDMS 15:14 15:14 Hip Left 1 View+RAD.RAD.BRZ ordered. EDMS EDMS 15:14 15:14 Knee Left 2 View+RAD.RAD.BRZ ordered. EDMS EDMS 15:55 15:47 Immunization history: Adult Immunizations up to date, dd2 dd2 15:55 15:47 Infectious Disease History: Denies. dd2 dd2 15:55 15:47 Social history: Smoking status: Patient reports the use of cigarette tobacco dd2 products, denies chronic smoking, but will smoke occasionally, dd2 19:18 17:16 YAYA gb1 dd2
[2024-09-12] MEDS ORDERED: HYDROMORPHONE HCL 1 MG/ML INJ ONE (17:23)
[2024-09-12] MEDS ORDERED: NICOTINE 21 MG/PAT TD ONE (17:24)
[2024-09-12 19:27] VITALS: TEMP 98.3
[2024-09-12 19:31] VITALS: O2SAT 95
[2024-09-12 19:32] VITALS: BP 144/81
== END 2024-09-12 19:18 | disposition short-term general hospital (02) ==
LOC: ER 14:47
DX: S72.112A Displaced fracture of greater trochanter of left femur, initial encounter for closed fracture (principal); W10.1XXA Fall (on)(from) sidewalk curb, initial encounter; E11.9 Type 2 diabetes mellitus without complications; Z79.4 Long term (current) use of insulin; F17.210 Nicotine dependence, cigarettes, uncomplicated
CPT/HCPCS: 96361; 85025; 36415; 83690; 80053; 82010; 73560; 72170; 73502; 82805; 96375; 96374; 99285; 36600; J1171; J2405; J7030